=== PATIENT | male | born 1985 ===

== ENCOUNTER 2020-01-29 15:33 | Emergency (ER) | payer SELFPAY ==
[~2020-01-29] VITALS: Ht 165.1 cm; Wt 66.7 kg
[2020-01-29 15:42] VITALS: BP 138/90
--- NOTE | 2020-01-29 16:33 | NUR ---
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
--- NOTE | 2020-01-29 16:41 | NUR ---
PT STATES HE HAS HAD SOB, CP, AND FEVERS FOR 1 WEEK. PT DENIES GI N.V. PT HAS MUSCLE ACHES. PT AMUBLATORY W STEADY GAIT, NOT IN RESP DISTRESS.
--- NOTE | 2020-01-29 17:25 | NUR ---
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
[2020-01-29] MEDS ORDERED: METOCLOPRAMIDE 5 MG/ML, 2ML IVPush ONE (17:30)
[2020-01-29] MEDS ORDERED: KETOROLAC 30 MG/1 ML IVPush ONE (17:30)
[2020-01-29] MEDS ORDERED: METOCLOPRAMIDE 5 MG/ML, 2ML ONE (17:33)
[2020-01-29] MEDS ORDERED: KETOROLAC 30 MG/1 ML ONE (17:33)
[2020-01-29 17:41] LABS: BASOPHILS # (AUTO) 0.01 x10^3/uL (0-0.1); BASOPHILS % (AUTO) 0 % (0-1); EOSINOPHILS % (AUTO) 0 % (1-7); LYMPHOCYTES # (AUTO) 0.67 x10^3/uL (1-3.4); LYMPHOCYTES % (AUTO) 8 % (22-44); MD NO; MEAN CORPUSCULAR VOLUME 93.9 fL (81-97); MEAN PLATELET VOLUME 8.3 fL (7.4-10.4); MONOCYTES # (AUTO) 0.41 x10^3/uL (0.2-0.8); MONOCYTES % (AUTO) 5 % (2-9); NEUTROPHILS # (AUTO) 7.13 x10^3/uL (1.8-6.8); NEUTROPHILS % (AUTO) 87 % (42-75); PLATELET COUNT 181 x10^3/uL (130-400); RED BLOOD COUNT 5.31 x10^6/uL (4.38-5.82); RED CELL DISTRIBUTION WIDTH 11.8 % (9.4-14.8)
[2020-01-29 17:52] LABS: ALANINE AMINOTRANSFERASE 45 U/L (12-78); ANION GAP 10 mmol/L (5-15); C-REACTIVE PROTEIN, QUANT 0.27 mg/dL (0.02-0.49); CALCIUM 8.5 mg/dL (8.5-10.1); CHLORIDE 104 mmol/L (98-107); CREATININE 0.98 mg/dL (0.7-1.3)
[2020-01-29 17:54] LABS: ALKALINE PHOSPHATASE 125 U/L (45-117); BILIRUBIN,TOTAL 0.4 mg/dL (0.2-1.0); TOTAL PROTEIN 8.3 g/dL (6.4-8.2)
--- NOTE | 2020-01-29 18:30 | NUR ---
Patient/Caregiver given discharge instructions and they have confirmed that they understand the instructions. Patient ambulatory with steady gait.
== END 2020-01-29 18:32 ==
LOC: ED 18:00
DX: U07.1 COVID-19 (principal); B34.9 Viral infection, unspecified; R51 Headache; R07.81 Pleurodynia; R10.9 Unspecified abdominal pain
CPT/HCPCS: 36415; 71045; 80053; 84145; 85025; 86140; 87635; 96374; 96375; 99284; J1885; J2765